=== PATIENT | male | born 1975 | race Caucasian/White ===

== ENCOUNTER 2017-11-24 08:13 | Day surgery (SDC) | payer MEDICAID ==
[~2017-11-24] VITALS: Ht 167.6 cm; Wt 79.5 kg
[~2017-11-24 08:13] MED LIST: SODIUM CHLORIDE 0.9% 1,000 ML IV ONE
[2017-11-24] MEDS ORDERED: SODIUM CHLORIDE 0.9% 1,000 ML IV ONE (08:22)
[2017-11-24 09:02] LABS: GLUCOMETER DEV NAME(LOC) SDS 5; GLUCOSE,POINT OF CARE 194 MG/DL (70-110)
[2017-11-24] MEDS ORDERED: INSU100V12 SQ (09:05)
[2017-11-24] MEDS ORDERED: ATOR10TA84 PO (09:05)
[2017-11-24] MEDS ORDERED: METF500T4 PO (09:05)
[2017-11-24] MEDS ORDERED: GLIP5 PO (09:05)
[2017-11-24] MEDS ORDERED: LISI-661 PO (09:05)
[2017-11-24] MEDS ORDERED: MIDAZOLAM HCL 5 MG/ML VIAL ONE (09:09)
[2017-11-24] MEDS ORDERED: FentaNYL CITRATE-PF 100 MCG/2 ML VIAL ONE (09:10)
== END 2017-11-24 11:15 | disposition home or self-care (01) ==
LOC: SURGERY 08:13
PROVIDERS: ATTEND Internal Medicine Gastroenterology
DX: K52.832 Lymphocytic colitis (principal); I10 Essential (primary) hypertension; E78.5 Hyperlipidemia, unspecified; E11.9 Type 2 diabetes mellitus without complications; I25.10 Atherosclerotic heart disease of native coronary artery without angina pectoris; G47.33 Obstructive sleep apnea (adult) (pediatric); Z95.5 Presence of coronary angioplasty implant and graft; Z80.0 Family history of malignant neoplasm of digestive organs; Z86.74 Personal history of sudden cardiac arrest; Z79.4 Long term (current) use of insulin; Z79.84 Long term (current) use of oral hypoglycemic drugs; Z79.899 Other long term (current) drug therapy
CPT/HCPCS: 45380; 82962; 88305; C1769; J2250; J3010; J7030